=== PATIENT | female | born 1940 ===

== ENCOUNTER 2017-08-28 13:00 | Emergency (ER) | payer OTHER ==
[~2017-08-28] VITALS: Ht 157.5 cm; Wt 71.7 kg
[~2017-08-28 13:00] MED LIST: AVAPRO150 MG; CLEOCIN HCL300 MG; GLIMEPIRIDE4 MG; LASIX20 MG; NITROSTAT0.4 MG; ULTRACET PO
[2017-08-28] MEDS ORDERED: SYNTHROID50 MCG PO (13:13)
[2017-08-28] MEDS ORDERED: GLIMEPIRIDE4 MG PO (13:14)
== END 2017-08-28 15:58 | disposition home or self-care (01) ==
LOC: ER 13:00
DX: M75.102 Unspecified rotator cuff tear or rupture of left shoulder, not specified as traumatic (principal)